=== PATIENT | male | born 1940 | race African-American/Black ===

== ENCOUNTER 2017-12-11 11:58 | Inpatient (IN) | payer MEDICARE, MEDICAID ==
[~2017-12-11] VITALS: Ht 182.9 cm; Wt 80.1 kg
[~2017-12-11 11:58] MED LIST: AMLO10TA80 MT; METO25TA6 PO; OMEP40CA34 PO; Potassium Chloride PO; TAMS0.4C31 MT
[2017-12-11 12:50] LABS: BASOPHILS % 0.4 % (0.0-2.0); EOSINOPHILS % 0.1 % (0.0-5.0); HEMATOCRIT. 35.7 % (42.0-52.0); HEMOGLOBIN. 11.9 g/dL (14.0-18.0); LYMPHOCYTES % 9.6 % (20.0-50.0); MEAN CORPUSCULAR VOLUME 92.9 fL (80.0-94.0); MEAN PLATELET VOLUME 9.5 fl (7.4-10.4); MONOCYTES % 4.6 % (2.0-8.0); NEUTROPHILS % 85.3 % (40.0-76.0); PLATELET 315 x1000/uL (130-400); RED BLOOD CELL COUNT 3.84 mill/uL (4.7-6.1); RED CELL DISTRIBUTION WIDTH 14.1 % (11.6-14.6)
[2017-12-11 12:58] LABS: CHLORIDE 106 mEq/L (98-107)
[2017-12-11] MEDS ORDERED: ASPIRIN 81MG TABLET PO ONE (16:00)
[2017-12-11 20:20] VITALS: BP 151/83
[2017-12-11 20:21] VITALS: BP 151/83
[2017-12-11] MEDS ORDERED: ONDANSETRON HCL 4MG/2ML INJ IV PRN (21:30)
[2017-12-11] MEDS ORDERED: ACETAMINOPHEN 325MG TABLET PO PRN (21:30)
[2017-12-11 22:02] LABS: CLARITY URINE CLEAR (CLEAR); COLOR URINE YELLOW (YELLOW); KETONES URINE NEGATIVE (NEGATIVE); LEUKOCYTE ESTERASE URINE NEGATIVE (NEGATIVE); NITRITE URINE NEGATIVE (NEGATIVE); OCCULT BLOOD URINE NEGATIVE (NEGATIVE); PROTEIN URINE TRACE (NEGATIVE); SPECIFIC GRAVITY URINE 1.017 (1.005-1.030); UROBILINOGEN URINE 0.2 E.U./dL (0.2-1.0)
[2017-12-11 22:17] LABS: *AMPHETAMINES SCREEN URINE NEGATIVE (NEGATIVE); *BARBITURATES SCREEN URINE NEGATIVE (NEGATIVE); *BENZODIAZEPINES SCREEN URINE NEGATIVE (NEGATIVE); *COCAINE SCREEN URINE NEGATIVE (NEGATIVE); METHADONE URINE SCREEN NEGATIVE (NEGATIVE); OPIATES URINE SCREEN NEGATIVE (NEGATIVE)
[2017-12-11 22:18] LABS: CANNABINOID URINE SCREEN NEGATIVE (NEGATIVE); PHENCYCLIDINE URINE SCREEN NEGATIVE (NEGATIVE)
[2017-12-11] MEDS: METOPROLOL TARTRATE 25MG TABLET PO SCH (23:10)
[2017-12-11] MEDS: ENOXAPARIN 40MG/0.4ML SYR SUBCUT SCH (23:10)
[2017-12-12] VITALS: BP_SYST 107; BP_SYST 116; BP_SYST 145; BP_DIAS 64; BP_DIAS 68; BP_DIAS 70
[2017-12-12 04:00] VITALS: BP 111/74
[2017-12-12] MEDS: OMEPRAZOLE 20MG CAPSULE EXTENDED RELEASE PO SCH (05:45)
[2017-12-12 06:48] LABS: BASOPHILS % 0.9 % (0.0-2.0); EOSINOPHILS % 1.2 % (0.0-5.0); HEMATOCRIT. 32.4 % (42.0-52.0); HEMOGLOBIN. 11.1 g/dL (14.0-18.0); MEAN CORPUSCULAR HEMOGLOBIN 31.6 pg (28.0-32.0); MEAN CORPUSCULAR VOLUME 92.6 fL (80.0-94.0); MEAN PLATELET VOLUME 9.8 fl (7.4-10.4); MONOCYTES % 9.7 % (2.0-8.0); NEUTROPHILS % 64.2 % (40.0-76.0); PLATELET 296 x1000/uL (130-400)
[2017-12-12 07:08] LABS: CHLORIDE 108 mEq/L (98-107)
[2017-12-12 08:00] VITALS: BP_SYST 103; BP_SYST 116; BP_DIAS 72; BP_DIAS 77
[2017-12-12] MEDS: METOPROLOL TARTRATE 25MG TABLET PO SCH ×2 (09:00→20:34)
[2017-12-12] MEDS ORDERED: AMLODIPINE 10MG TABLET PO SCH (09:00)
[2017-12-12] MEDS: TAMSULOSIN HCL 0.4MG SR CAPSULE PO SCH (09:32)
[2017-12-12] MEDS: POTASSIUM CHLORIDE 10MEQ TABLET SR PO SCH (09:32)
[2017-12-12 12:00] VITALS: BP 178/75
[2017-12-12 12:09] VITALS: BP_SYST 111; BP_SYST 114; BP_DIAS 66; BP_DIAS 75
[2017-12-12] MEDS: AMLODIPINE 5MG TABLET PO SCH (12:48)
[2017-12-12] MEDS: FLUCONAZOLE 100MG TABLET PO SCH (12:48)
[2017-12-12 20:00] VITALS: BP_SYST 104; BP_SYST 116; BP_SYST 118; BP_DIAS 69; BP_DIAS 70; BP_DIAS 79
[2017-12-12] MEDS: ENOXAPARIN 40MG/0.4ML SYR SUBCUT SCH (20:34)
[2017-12-12] MEDS: HYDROCODONE/ACETAMINOPHEN 5/325MG TABLET PO PRN (22:29)
[2017-12-13] VITALS: BP 119/74
[2017-12-13 04:00] VITALS: BP 110/73
[2017-12-13 05:30] LABS: EOSINOPHILS % 2.4 % (0.0-5.0); HEMATOCRIT. 31.3 % (42.0-52.0); HEMOGLOBIN. 10.6 g/dL (14.0-18.0); LYMPHOCYTES % 28.1 % (20.0-50.0); MEAN CORPUSCULAR HEMOGLOBIN 31.3 pg (28.0-32.0); MEAN CORPUSCULAR VOLUME 92.4 fL (80.0-94.0); MEAN PLATELET VOLUME 9.4 fl (7.4-10.4); MONOCYTES % 9.2 % (2.0-8.0); NEUTROPHILS % 59.3 % (40.0-76.0); PLATELET 284 x1000/uL (130-400); RED BLOOD CELL COUNT 3.39 mill/uL (4.7-6.1); RED CELL DISTRIBUTION WIDTH 14.1 % (11.6-14.6)
[2017-12-13] MEDS: OMEPRAZOLE 20MG CAPSULE EXTENDED RELEASE PO SCH (06:05)
[2017-12-13 06:37] LABS: CHLORIDE 105 mEq/L (98-107)
[2017-12-13 08:00] VITALS: BP_SYST 105; BP_SYST 110; BP_SYST 97; BP_DIAS 62; BP_DIAS 71; BP_DIAS 73
[2017-12-13] MEDS: TAMSULOSIN HCL 0.4MG SR CAPSULE PO SCH (09:24)
[2017-12-13] MEDS: AMLODIPINE 5MG TABLET PO SCH (09:24)
[2017-12-13] MEDS: POTASSIUM CHLORIDE 10MEQ TABLET SR PO SCH (09:24)
[2017-12-13] MEDS: FLUCONAZOLE 100MG TABLET PO SCH (09:25)
[2017-12-13] MEDS: METOPROLOL TARTRATE 25MG TABLET PO SCH ×2 (09:25→20:00)
[2017-12-13 12:00] VITALS: BP 115/73
[2017-12-13 16:00] VITALS: BP 125/76
[2017-12-13] MEDS: HYDROCODONE/ACETAMINOPHEN 5/325MG TABLET PO PRN (16:12)
[2017-12-13 20:00] VITALS: BP_SYST 102; BP_SYST 104; BP_SYST 120; BP_DIAS 67; BP_DIAS 77; BP_DIAS 80
[2017-12-13] MEDS: ENOXAPARIN 40MG/0.4ML SYR SUBCUT SCH (20:09)
[2017-12-14] VITALS (7 sets, daily range): BP systolic 108–144; BP diastolic 71–91
[2017-12-14] MEDS: OMEPRAZOLE 20MG CAPSULE EXTENDED RELEASE PO SCH (06:18)
[2017-12-14] MEDS: TAMSULOSIN HCL 0.4MG SR CAPSULE PO SCH ×2 (10:00→14:56)
[2017-12-14] MEDS: METOPROLOL TARTRATE 25MG TABLET PO SCH ×2 (10:00→14:57)
[2017-12-14] MEDS: AMLODIPINE 5MG TABLET PO SCH ×2 (10:00→14:56)
[2017-12-14] MEDS: FLUCONAZOLE 100MG TABLET PO SCH (10:28)
[2017-12-14] MEDS: POTASSIUM CHLORIDE 10MEQ TABLET SR PO SCH (10:28)
== END 2017-12-14 16:10 | disposition home or self-care (01) | DRG 74 ==
LOC: ER 11:58 → 5WST 15:07 → ENRESERV 19:08 → EDBEDREQTM 20:23 → EDBEDREQ 20:23
PROVIDERS: ADMIT Family Medicine Adult Medicine; ATTEND Family Medicine Adult Medicine
PROC: 4A00X4Z Measurement of Central Nervous Electrical Activity, External Approach (ICD-10-PCS; principal; 2017-12-14)
DX: G90.8 Other disorders of autonomic nervous system (principal); N39.0 Urinary tract infection, site not specified; E44.1 Mild protein-calorie malnutrition; N40.0 Benign prostatic hyperplasia without lower urinary tract symptoms; D64.9 Anemia, unspecified; E78.5 Hyperlipidemia, unspecified; E78.00 Pure hypercholesterolemia, unspecified; I10 Essential (primary) hypertension; M19.90 Unspecified osteoarthritis, unspecified site; Z96.659 Presence of unspecified artificial knee joint; L90.5 Scar conditions and fibrosis of skin; B37.9 Candidiasis, unspecified; Z93.3 Colostomy status; Z79.899 Other long term (current) drug therapy; Z68.23 Body mass index [BMI] 23.0-23.9, adult
CPT/HCPCS: 36415; 70544; 70553; 71045; 80048; 80053; 80305; 81003; 83880; 84484; 85025; 87086; 93005; 93306; 93880; 97162; 99285; J1650; J7030

== ENCOUNTER 2018-06-28 15:13 | Emergency (ER) | payer MEDICARE, MEDICAID ==
[~2018-06-28] VITALS: Ht 195.6 cm; Wt 80.0 kg
[2018-06-28 16:44] VITALS: BP 145/85
== END 2018-06-28 16:46 | disposition home or self-care (01) ==
LOC: ER 15:45
DX: Z46.6 Encounter for fitting and adjustment of urinary device (principal)
CPT/HCPCS: 51702; 99284

== ENCOUNTER 2019-03-07 10:50 | Inpatient (IN) | payer MEDICARE, MEDICAID ==
[~2019-03-07] VITALS: Ht 195.6 cm; Wt 79.8 kg
[2019-03-07] MEDS ORDERED: SODIUM CHLORIDE 0.9% 1,000 ML IV ONE (11:28)
[2019-03-07 12:02] LABS: CLARITY URINE TURBID (CLEAR); COLOR URINE DARK YELLOW (YELLOW); KETONES URINE TRACE (NEGATIVE); LEUKOCYTE ESTERASE URINE 3+ (NEGATIVE); NITRITE URINE NEGATIVE (NEGATIVE); OCCULT BLOOD URINE 2+ (NEGATIVE); PH URINE 5.5 (4.5-8.0); PROTEIN URINE 1+ (NEGATIVE); SPECIFIC GRAVITY URINE 1.018 (1.005-1.030)
[2019-03-07 12:03] LABS: BASOPHILS % 0.4 % (0.0-2.0); EOSINOPHILS % 0.2 % (0.0-5.0); HEMATOCRIT. 32.6 % (42.0-52.0); HEMOGLOBIN. 10.7 g/dL (14.0-18.0); LYMPHOCYTES % 8.7 % (20.0-50.0); MEAN CORPUSCULAR HEMOGLOBIN 30.4 pg (28.0-32.0); MEAN CORPUSCULAR VOLUME 92.5 fL (80.0-94.0); MEAN PLATELET VOLUME 10.3 fl (7.4-10.4); MONOCYTES % 5.7 % (2.0-8.0); PLATELET 222 x1000/uL (130-400); RED BLOOD CELL COUNT 3.52 mill/uL (4.7-6.1); RED CELL DISTRIBUTION WIDTH 14.2 % (11.6-14.6)
[2019-03-07 12:09] LABS: CHLORIDE 106 mEq/L (98-107)
[2019-03-07 12:13] LABS: ETHANOL BLOOD < 10 mg/dL
[2019-03-07 12:16] LABS: *AMPHETAMINES SCREEN URINE NEGATIVE (NEGATIVE); *BARBITURATES SCREEN URINE NEGATIVE (NEGATIVE); *BENZODIAZEPINES SCREEN URINE NEGATIVE (NEGATIVE); *COCAINE SCREEN URINE NEGATIVE (NEGATIVE)
[2019-03-07 12:17] LABS: METHADONE URINE SCREEN NEGATIVE (NEGATIVE); OPIATES URINE SCREEN NEGATIVE (NEGATIVE); PHENCYCLIDINE URINE SCREEN NEGATIVE (NEGATIVE)
[2019-03-07 12:19] LABS: CANNABINOID URINE SCREEN NEGATIVE (NEGATIVE)
[2019-03-07] MEDS ORDERED: CEFTRIAXONE 1 G PREMIX 50 ML IV ONE ×2 (12:30→13:30)
[2019-03-07] MEDS ORDERED: ONDANSETRON HCL 4MG/2ML INJ IV PRN (13:30)
[2019-03-07 17:03] VITALS: BP 151/90
[2019-03-07 20:00] VITALS: BP 127/82
[2019-03-07] MEDS: HEPARIN 5000 UNITS/ML VIAL SUBCUT SCH (20:06)
[2019-03-08] VITALS: BP 132/72
[2019-03-08 08:00] VITALS: BP 124/74
[2019-03-08] MEDS: CEFTRIAXONE 1 G PREMIX 50 ML IV SCH (09:00)
[2019-03-08 09:18] LABS: CHLORIDE 107 mEq/L (98-107)
[2019-03-08 10:06] LABS: BASOPHILS % 0.9 % (0.0-2.0); EOSINOPHILS % 0.2 % (0.0-5.0); HEMATOCRIT. 29.6 % (42.0-52.0); HEMOGLOBIN. 9.8 g/dL (14.0-18.0); LYMPHOCYTES % 22.4 % (20.0-50.0); MEAN CORPUSCULAR HEMOGLOBIN 30.3 pg (28.0-32.0); MEAN CORPUSCULAR VOLUME 91.1 fL (80.0-94.0); NEUTROPHILS % 66.5 % (40.0-76.0); PLATELET 207 x1000/uL (130-400); RED BLOOD CELL COUNT 3.25 mill/uL (4.7-6.1); RED CELL DISTRIBUTION WIDTH 13.8 % (11.6-14.6)
[2019-03-08] MEDS: HEPARIN 5000 UNITS/ML VIAL SUBCUT SCH (10:38)
[2019-03-08 12:00] VITALS: BP 133/80
[2019-03-08] MEDS: ACETAMINOPHEN 325MG TABLET PO PRN (14:38)
[2019-03-08] MEDS: AMLODIPINE 5MG TABLET PO SCH (14:54)
[2019-03-08 15:42] LABS: T4 FREE 0.77 ng/dL (0.76-1.46)
[2019-03-08 16:00] VITALS: BP 129/77
[2019-03-08 20:00] VITALS: BP 121/76
[2019-03-09] VITALS: BP 131/80
[2019-03-09] MEDS: HEPARIN 5000 UNITS/ML VIAL SUBCUT SCH ×3 (00:04→21:35)
[2019-03-09] MEDS: METOPROLOL TARTRATE 25MG TABLET PO SCH ×3 (00:05→22:31)
[2019-03-09 04:00] VITALS: BP 137/81
[2019-03-09 08:00] VITALS: BP 126/90
[2019-03-09] MEDS: CEFTRIAXONE 1 G PREMIX 50 ML IV SCH (08:07)
[2019-03-09] MEDS: ACETAMINOPHEN 325MG TABLET PO PRN ×2 (08:09→21:34)
[2019-03-09] MEDS: AMLODIPINE 5MG TABLET PO SCH (08:23)
[2019-03-09] MEDS ORDERED: MAGNESIUM 2 G PREMIX 50 ML IV NR ×2 (09:00→13:00)
[2019-03-09 12:00] VITALS: BP 129/84
[2019-03-09] MEDS ORDERED: MAGNESIUM 4 G PREMIX 100 ML IV ONE (12:00)
[2019-03-09 13:29] LABS: BASOPHILS % 1.6 % (0.0-2.0); EOSINOPHILS % 0.4 % (0.0-5.0); HEMATOCRIT. 30.3 % (42.0-52.0); LYMPHOCYTES % 31.6 % (20.0-50.0); MEAN CORPUSCULAR HEMOGLOBIN 30.3 pg (28.0-32.0); MEAN CORPUSCULAR VOLUME 91.6 fL (80.0-94.0); MEAN PLATELET VOLUME 10.4 fl (7.4-10.4); MONOCYTES % 11.2 % (2.0-8.0); NEUTROPHILS % 55.2 % (40.0-76.0); PLATELET 202 x1000/uL (130-400); RED CELL DISTRIBUTION WIDTH 13.8 % (11.6-14.6)
[2019-03-09 13:49] LABS: CHLORIDE 105 mEq/L (98-107)
[2019-03-09 16:00] VITALS: BP 125/77
[2019-03-09 20:00] VITALS: BP 120/69
[2019-03-10 04:00] VITALS: BP 127/64
[2019-03-10 07:06] LABS: BASOPHILS % 1.6 % (0.0-2.0); EOSINOPHILS % 0.8 % (0.0-5.0); HEMATOCRIT. 30.1 % (42.0-52.0); HEMOGLOBIN. 10.1 g/dL (14.0-18.0); LYMPHOCYTES % 41.9 % (20.0-50.0); MEAN CORPUSCULAR HEMOGLOBIN 30.7 pg (28.0-32.0); MEAN CORPUSCULAR VOLUME 91.4 fL (80.0-94.0); MEAN PLATELET VOLUME 11.1 fl (7.4-10.4); MONOCYTES % 11.5 % (2.0-8.0); NEUTROPHILS % 44.2 % (40.0-76.0); PLATELET 198 x1000/uL (130-400); RED BLOOD CELL COUNT 3.29 mill/uL (4.7-6.1); RED CELL DISTRIBUTION WIDTH 13.8 % (11.6-14.6)
[2019-03-10 07:21] LABS: CHLORIDE 106 mEq/L (98-107)
[2019-03-10 08:00] VITALS: BP 123/78
[2019-03-10] MEDS: AMLODIPINE 5MG TABLET PO SCH (09:04)
[2019-03-10] MEDS: METOPROLOL TARTRATE 25MG TABLET PO SCH (09:04)
[2019-03-10] MEDS: HEPARIN 5000 UNITS/ML VIAL SUBCUT SCH (09:05)
[2019-03-10] MEDS: CEFTRIAXONE 1 G PREMIX 50 ML IV SCH (09:37)
[2019-03-10 12:00] VITALS: BP 114/74
[2019-03-10] MEDS ORDERED: CIPR500S3 PO (14:22)
[2019-03-10] MEDS ORDERED: SULF-292 MT (14:24)
[2019-03-10 15:02] VITALS: BP 114/74
== END 2019-03-10 17:19 | disposition home or self-care (01) | DRG 689 ==
LOC: ER 10:50 → 7WST 13:18 → EDBEDREQ 13:23 → ENRESERV 14:34 → UNDODISIN 03-09 10:00
PROVIDERS: ADMIT Family Medicine Adult Medicine; ATTEND Family Medicine Adult Medicine
DX: N39.0 Urinary tract infection, site not specified (principal); E43 Unspecified severe protein-calorie malnutrition; D64.9 Anemia, unspecified; Z96.652 Presence of left artificial knee joint; I10 Essential (primary) hypertension; E83.42 Hypomagnesemia; I44.0 Atrioventricular block, first degree; N40.0 Benign prostatic hyperplasia without lower urinary tract symptoms; M19.90 Unspecified osteoarthritis, unspecified site; K21.9 Gastro-esophageal reflux disease without esophagitis; M47.817 Spondylosis without myelopathy or radiculopathy, lumbosacral region; Z86.73 Personal history of transient ischemic attack (TIA), and cerebral infarction without residual deficits; Z79.899 Other long term (current) drug therapy
CPT/HCPCS: 36415; 71045; 80048; 80053; 80305; 80320; 81003; 83735; 83880; 84100; 84439; 84443; 84484; 85025; 87077; 87186; 93005; 93306; 97110; 97116; 97162; 97166; 97530; 99285; A6261; J0696; J1644; J2405; J3475; J7030; J7040; G0480